=== PATIENT | male | born 2000 | race Caucasian/White ===

== ENCOUNTER 2020-02-29 21:48 | Emergency (ER) | payer SELFPAY ==
[2020-02-29 22:06] VITALS: BP 122/76; PULSE 104; RESP 18; TEMP 36.4; O2SAT 98; BMI 20.2
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
[2020-02-29 23:37] VITALS: PULSE 92; RESP 16; O2SAT 98
== END 2020-02-29 23:38 | disposition home or self-care (01) ==
PROVIDERS: Emergency Provider Physician Assistant; PCP Family Medicine
DX: S60.221A Contusion of right hand, initial encounter (principal); V89.2XXA Person injured in unspecified motor-vehicle accident, traffic, initial encounter
CPT/HCPCS: 12345; 73130; 99281; 99282

== ENCOUNTER 2020-07-05 19:03 | Emergency (ER) | payer SELFPAY ==
[2020-07-05] VITALS (7 sets, daily range): BP systolic 107–125; BP diastolic 66–87; PULSE 77–136; RESP 17–28; TEMP 36.2; O2SAT 92–98; BMI 20.9
--- NOTE | 2020-07-05 19:10 | XR_ITS ---
WS: [id number] XR chest 1V portable [id number] REASON FOR EXAM: sob FINDINGS: Chest is unchanged compared to 11/01/2012. The heart and mediastinum are within normal limits. Calcified granulomatous changes in both hemithoraces. No active pulmonary parenchymal or pleural disease. Bony thorax is intact. XR/XR chest 1V portable [id number] IMPRESSION: No acute chest abnormality.
--- NOTE | 2020-07-05 19:45 | ED_ITS ---
HPI - SOB/Dyspnea General: Chief Complaint: Shortness of Breath/Dyspnea Stated Complaint: SOB Time Seen by Provider: 07/05/20 19:26 Source: patient Mode of arrival: ambulatory Limitations: no limitations History of Present Illness: HPI Narrative: 20-year-old male has a history of asthma states he had increased weakening cough over last 4 to 5 days. Patient is tachypneic and tachycardic here. He states that he has been using his breathing treatments at home with minimal relief. He denies any vomiting or diarrhea. Denies any worsening improving factors. He has had no known sick contacts that he knows of. Associated symptoms: Deny abdominal pain, chest pain, fever(s), nausea or vomiting Review of Systems Const: Denies: fever(s), chills, body aches or change in appetite Eyes: Denies: blurry vision or eye discomfort ENMT: Denies: throat pain or dental pain Card: Denies: chest pain Resp: Reports: dyspnea, non-productive cough and wheezing GI: Denies: abdominal pain, nausea, vomiting or diarrhea : Denies: dysuria Musc: Denies: neck pain or back pain Skin/Breast: Denies: rash Neuro: Denies: headache(s) Psych: Denies: depression Jorge/Lymph: Denies: easy bruising All/Imm: Denies: urticaria Physical Exam Const: COMMON NORMALS: no acute distress, patient oriented x3 and healthy appearing HENMT: COMMON NORMALS: normocephalic and atraumatic HEAD & SCALP: normocephalic and atraumatic Eye: COMMON NORMALS: Equal, round and reactive pupils present and EOMs intact bilaterally PUPIL: Yes Equal, round and reactive pupils present Neck/C-Spine: COMMON NORMALS: full ROM and supple Chest: COMMONS NORMALS: normal inspection of the chest and normal palpation of entire chest wall Resp: COMMON NORMALS: No retractions and No use of accessory muscles EFFORT & INSPECTION: Yes tachypneic AUSCULTATION: wheezes Cardio: COMMON NORMALS: regular rhythm and No murmurs present (Cardio) RATE: tachycardic RHYTHM: regular rhythm GI: COMMON NORMALS: Normal to inspection, nondistended, normoactive bowel sounds present, Soft to palpation, non-tender and no masses PALPATION: Yes Soft to palpation Extremity: COMMON NORMALS: normal to inspection and full ROM Neuro: COMMON NORMALS: patient oriented x3, moves all extremities and no focal motor deficits Psych: COMMON NORMALS: mental status grossly normal, Normal thought process present and cooperative THOUGHT PROCESS: Normal thought process present Skin: COMMON NORMALS: no rashes or lesions noted and no wounds GENERAL SKIN EXAM: no rashes or lesions noted Course Vital Signs: Vital signs: Vital Signs Temperature 97.2 F L 07/05/20 19:12 Pulse Rate 80 07/05/20 20:15 Respiratory Rate 19 H 07/05/20 20:13 Blood Pressure 107/66 07/05/20 19:12 Pulse Oximetry 94 07/05/20 20:13 MDM - SOB/Dyspnea MDM Narrative: Medical decision making narrative: Mingo presents here with dyspnea and wheezing. This is likely bronchitis and asthma exacerbation. His x-ray here shows no pneumothorax or pneumonia. His Covid test was negative. He is much improved here after a breathing treatment. His tachycardia subsided. He has no signs of pulmonary embolism with a negative D-dimer. He is stable for discharge and is to follow-up and return if worsening. Lab Data: Labs: Lab Results 07/05/20 07/05/20 07/05/20 Range/Units 19:47 19:47 19:47 WBC 18.5 H (4.0-10.0) 10^3/ uL RBC 4.95 (4.1-5.3) 10^6/u L Hgb 15.8 (11.7-16.6) g/dL Hct 48.5 (42.0-52.0) % MCV 98.0 H (80-94) fL MCH 31.9 (28.0-34.0) pg MCHC 32.6 (30.0-36.0) g/dL RDW 11.9 L (12.1-15.1) % Plt Count 302 (130-400) 10^3/c mm MPV 10.7 H (7.4-10.4) fL Neut % (Auto) 80.6 % Lymph % (Auto) 6.9 % [place] % (Auto) 9.2 % Eos % (Auto) 2.5 % Baso % (Auto) 0.4 % Neut # (Auto) 14.94 H (1.8-7.7) 10^3/u L Lymph # (Auto) 1.3 (0.8-4.8) 10^3/u L [place] # (Auto) 1.7 H (0.2-0.9) 10^3/u L Eos # (Auto) 0.5 (0.0-0.8) 10^3/u L Baso # (Auto) 0.1 (0.0-0.1) 10^3/u L Nucleated RBC % (a uto) 0 % Nucleated RBCs # 0.0 /100WBC D-Dimer 0.44 (0-0.59) ug/mIFE U Sodium 139 (136-145) mmol/L Potassium 4.3 (3.5-5.1) mmol/L Chloride 99 (98-107) mmol/L Carbon Dioxide 28 (22-29) mmol/L Anion Gap 16.3 (5-19) BUN 8 (6-20) mg/dL Creatinine 0.9 (0.7-1.2) mg/dL GFR Calculation 106.5 (90-130) mL/min Glucose 120 H (65-115) mg/dL Calculated Osmolal ity 288 (285-295) mOsm/k g Calcium 9.8 (8.5-10.5) mg/dL Total Bilirubin 0.4 (0.15-1.2) mg/dL AST 14 (0-40) U/L ALT 11 (0-41) U/L Alkaline Phosphata se 74 (40-130) IU/L Total Protein 8.2 (6.6-8.7) g/dL Albumin 4.5 (3.5-5.2) g/dL Globulin 3.7 (1.3-4.6) g/dL SARS-CoV-2 Ag (Rap id) (Negative) 07/05/20 Range/Units 20:05 WBC (4.0-10.0) 10^3/ uL RBC (4.1-5.3) 10^6/u L Hgb (11.7-16.6) g/dL Hct (42.0-52.0) % MCV (80-94) fL MCH (28.0-34.0) pg MCHC (30.0-36.0) g/dL RDW (12.1-15.1) % Plt Count (130-400) 10^3/c mm MPV (7.4-10.4) fL Neut % (Auto) % Lymph % (Auto) % [place] % (Auto) % Eos % (Auto) % Baso % (Auto) % Neut # (Auto) (1.8-7.7) 10^3/u L Lymph # (Auto) (0.8-4.8) 10^3/u L [place] # (Auto) (0.2-0.9) 10^3/u L Eos # (Auto) (0.0-0.8) 10^3/u L Baso # (Auto) (0.0-0.1) 10^3/u L Nucleated RBC % (a uto) % Nucleated RBCs # /100WBC D-Dimer (0-0.59) ug/mIFE U Sodium (136-145) mmol/L Potassium (3.5-5.1) mmol/L Chloride (98-107) mmol/L Carbon Dioxide (22-29) mmol/L Anion Gap (5-19) BUN (6-20) mg/dL Creatinine (0.7-1.2) mg/dL GFR Calculation (90-130) mL/min Glucose (65-115) mg/dL Calculated Osmolal ity (285-295) mOsm/k g Calcium (8.5-10.5) mg/dL Total Bilirubin (0.15-1.2) mg/dL AST (0-40) U/L ALT (0-41) U/L Alkaline Phosphata se (40-130) IU/L Total Protein (6.6-8.7) g/dL Albumin (3.5-5.2) g/dL Globulin (1.3-4.6) g/dL SARS-CoV-2 Ag (Rap id) Negative (Negative) Imaging Data^: CXR: Attestation: I personally reviewed and interpreted this imaging study as follows: My impression: no acute abnormality Discharge Plan Discharge Patient Disposition: Home Clinical Impression: Bronchitis Asthma with exacerbation Qualifiers: Asthma severity: unspecified severity Asthma persistence: unspecified Qualified Code(s): J45.901 - Unspecified asthma with (acute) exacerbation Condition: Stable Prescriptions: New Keflex 500 mg capsule 500 mg PO Q6H 7 Days Qty: 28 RF: 0 prednisone 50 mg tablet 50 mg PO DAILY Qty: 5 RF: 0 Discharge Orders: Discharge ED (Routine); Ordered 07/05/20 Ordered By: Yesi Saba Referrals: Collin Jimenes Jr, MD [Primary Care Provider] - Discharge Diet: Advance as tolerated Discharge Activity: Resume usual activity Patient Instructions: Asthma (ED) Coding Level of Care Code ED Obgyn Specialist for Chg Fwd Exam Comprehensive
[2020-07-05] MEDS: sodium chloride 0.9% 1,000 ML 999 ML IV (19:59)
[2020-07-05] MEDS: LORazepam 2 mg/mL INJ 1 mL 1 MG IVP (19:59)
[2020-07-05] MEDS: albuterol 8 gm MDI 2 PUFF INHALATION (20:15)
[2020-07-05 20:21] LABS: D Dimer 0.44 ug/mIFEU (0-0.59)
[2020-07-05 20:38] LABS: Basophils # 0.1 10^3/uL (0.0-0.1); Basophils % 0.4 %; Eosinophils # 0.5 10^3/uL (0.0-0.8); Eosinophils % 2.5 %; Hematocrit 48.5 % (42.0-52.0); Hemoglobin 15.8 g/dL (11.7-16.6); Lymphocytes # 1.3 10^3/uL (0.8-4.8); Lymphocytes % 6.9 %; Mean Corpuscular HGB Conc 32.6 g/dL (30.0-36.0); Mean Corpuscular Hemoglobin 31.9 pg (28.0-34.0); Mean Platelet Volume 10.7 fL (7.4-10.4); Monocytes # 1.7 10^3/uL (0.2-0.9); Monocytes % 9.2 %; Neutrophils # 14.94 10^3/uL (1.8-7.7); Neutrophils % 80.6 %; Nucleated Red Blood Cells % 0 %; Platelet Count 302 10^3/cmm (130-400); Red Blood Count 4.95 10^6/uL (4.1-5.3); Red Cell Distribution Width 11.9 % (12.1-15.1); White Blood Count 18.5 10^3/uL (4.0-10.0)
[2020-07-05 20:45] LABS: Alanine Aminotransferase 11 U/L (0-41); Albumin Level 4.5 g/dL (3.5-5.2); Alkaline Phosphatase 74 IU/L (40-130); Anion Gap 16.3 (5-19); Aspartate Amino Transferase 14 U/L (0-40); Blood Urea Nitrogen 8 mg/dL (6-20); Calcium 9.8 mg/dL (8.5-10.5); Carbon Dioxide 28 mmol/L (22-29); Chloride 99 mmol/L (98-107); Globulin 3.7 g/dL (1.3-4.6); Glomerular Filtration Rate 106.5 mL/min (90-130); Glucose 120 mg/dL (65-115); Osmolality Calculated 288 mOsm/kg (285-295); Potassium 4.3 mmol/L (3.5-5.1); Sodium 139 mmol/L (136-145); Total Bilirubin 0.4 mg/dL (0.15-1.2); Total Protein 8.2 g/dL (6.6-8.7)
[2020-07-05 20:49] LABS: SARS Covid-2 Antigen Negative (Negative)
[2020-07-05] MEDS: ipratropium-albuterol 3 mL Neb INHALATION (21:30)
== END 2020-07-05 21:58 | disposition home or self-care (01) ==
PROVIDERS: Emergency Provider Emergency Medicine; PCP Family Medicine
DX: J40 Bronchitis, not specified as acute or chronic (principal); J45.901 Unspecified asthma with (acute) exacerbation
CPT/HCPCS: 12345; 71045; 80053; 85025; 85378; 87426; 94640; 96361; 96374; 99282; 99284; J2060; J3535; J7030

== ENCOUNTER 2024-09-16 02:12 | Emergency (ER) | payer OTHER, SELFPAY ==
--- NOTE | 2024-09-16 02:18 | XRR_ITS ---
PROCEDURE INFORMATION: Exam: XR Chest Exam date and time: 09/16/2024 2:27 AM Age: 24 years old Clinical indication: Shortness of breath TECHNIQUE: Imaging protocol: Radiologic exam of the chest. Views: 1 view. COMPARISON: CR XR chest 1V portable [id number] 07/05/2020 8:21 PM FINDINGS: Lungs: Unremarkable. No consolidation. Pleural spaces: Unremarkable. No pleural effusion. No pneumothorax. Heart/Mediastinum: Unremarkable. No cardiomegaly. Bones/joints: Unremarkable. XR/XR chest 1V portable [id number] IMPRESSION: No acute findings.
[2024-09-16 02:20] VITALS: BP 90/67; PULSE 72; RESP 10; TEMP 34.8; O2SAT 94; BMI 16.0
[2024-09-16 02:24] LABS: Basophils # 0.1 10^3/uL (0.0-0.1); Basophils % 0.8 %; Eosinophils # 0.5 10^3/uL (0.0-0.8); Eosinophils % 6.1 %; Hematocrit 42.5 % (37-53); Lymphocytes # 2.5 10^3/uL (0.8-4.8); Mean Corpuscular HGB Conc 32.5 g/dL (30-55); Mean Corpuscular Hemoglobin 29.9 pg (27-33); Mean Corpuscular Volume 92.2 fl (82-101); Mean Platelet Volume 10.4 fL (7.4-10.4); Monocytes % 13.1 %; Neutrophils # 3.41 10^3/uL (1.8-7.7); Neutrophils % 45.9 %; Nucleated Red Blood Cells % 0 %; Platelet Count 289 10^3/cmm (157-399); Red Blood Count 4.61 10^6/uL (3.85-5.65); Red Cell Distribution Width 12.2 % (12.1-15.1); White Blood Count 7.42 10^3/uL (3.29-11.43)
--- NOTE | 2024-09-16 02:27 | ED_ITS ---
HPI - Altered Mental Status 2 General: Chief Complaint: Altered Mental Status Stated Complaint: ams Time Seen by Provider: 09/16/24 02:17 History of Present Illness: 24-year-old man with a history of asthma who presents emergency room after what was an apparent accidental Dilaudid overdose. Apparently he has been wheezing and his girlfriend went to find a inhaler and while she is gone apparently he injected a milligram of Dilaudid and when she got there he was unresponsive. She attempted some CPR. By the time EMS arrived he was awake. He denies any suicidal ideation. He had some wheeze on transfer and received breathing treatment and lungs sound much better now. No oxygen requirements. Related Data Previous Rx's ?Medication ?Instructions ?Recorded cephalexin 500 mg capsule 500 mg PO TID 7 days #21 cap s 08/17/21 albuterol sulfate 90 mcg/actuation 2 inh inhalation Q4 H PRN shortness 09/16/24 aerosol inhaler of breath or wheezing #6.7 g leroy azithromycin 250 mg tablet See Rx Instructions PO .COM PLEX #6 09/16/24 (Zithromax Z-Tu) tabs dexamethasone 6 mg tablet 6 mg PO DAILY 5 days #5 tabs 09/16/24 Allergies Allergy/AdvReac Type Severity Reaction Status Date / Time No Known Allergies Allergy Verified 09/16/24 02:25 Review of Systems 2 Narrative: Constitutional symptoms: Negative except as documented in HPI. Skin symptoms: Negative except as documented in HPI. Eye symptoms: Negative except as documented in HPI. ENMT symptoms: Negative except as documented in HPI. Respiratory symptoms: Negative except as documented in HPI. Cardiovascular symptoms: Negative except as documented in HPI. Gastrointestinal symptoms: Negative except as documented in HPI. Genitourinary symptoms: Negative except as documented in HPI. Musculoskeletal symptoms: Negative except as documented in HPI. Neurologic symptoms: Negative except as documented in HPI. Psychiatric symptoms: Negative except as documented in HPI. Endocrine symptoms: Negative except as documented in HPI. PFSH ED 2 PFSH: Social History Smoking and tobacco/nicotine status: current every day tobacco/nicotine user Physical Exam 2 Narrative: General: Alert, no acute distress. Skin: Warm, dry. Head: Normocephalic, atraumatic. Neck: Supple, trachea midline. Eye: Extraocular movements are intact. Ears, nose, mouth and throat: Oral mucosa moist. Cardiovascular: Regular rate and rhythm, Normal peripheral perfusion. Respiratory: some expiratory wheeze, mild increased wob, breath sounds are equal, Symmetrical chest wall expansion. Gastrointestinal: Soft, Nontender, Non distended, Normal bowel sounds. Musculoskeletal: Normal ROM, no deformity. Neurological: Alert and oriented to person, place, time, and situation, No focal neurological deficit observed. Psychiatric: Cooperative, appropriate mood & affect. Course 2 Vital Signs: Vital signs: Vital Signs Temperature 94.7 F L 09/16/24 02:20 Pulse Rate 89 09/16/24 02:43 Respiratory Rate 14 09/16/24 02:43 Blood Pressure 134/95 09/16/24 02:43 Pulse Oximetry 93 09/16/24 02:43 Oxygen Delivery Me thod Room Air 09/16/24 02:43 MDM - Altered Mental Status Medical Decision Making Chest x-ray: No acute process. No infiltrate. No pneumothorax. This was reviewed and interpreted by myself the emergency room physician. I also reviewed the radiology report. Assessment and plan: Unintentional opiate overdose Asthma exacerbation ? Narcan, Decadron in the emergency room. Breathing treatment given in the ambulance - Discharged home - Discussed plan with patient. Answered any questions. - Evaluation and treatment of this problem were appropriate in the emergency setting. Lab Data 09/16/24 02:00 09/16/24 02:00 Laboratory Results WBC 7.42 10^3/uL (3.29-11.43) 09/16/24 02:00 RBC 4.61 10^6/uL (3.85-5.65) 09/16/24 02:00 Hgb 13.80 g/dL (11.27-16.99) 09/16/24 02:00 Hct 42.5 % (37-53) 09/16/24 02:00 MCV 92.2 fl (82-101) 09/16/24 02:00 MCH 29.9 pg (27-33) 09/16/24 02:00 MCHC 32.5 g/dL (30-55) 09/16/24 02:00 RDW 12.2 % (12.1-15.1) 09/16/24 02:00 Plt Count 289 10^3/cmm (157-399) 09/16/24 02:00 MPV 10.4 fL (7.4-10.4) 09/16/24 02:00 Neut % (Auto) 45.9 % 09/16/24 02:00 Lymph % (Auto) 34.0 % 09/16/24 02:00 [place] % (Auto) 13.1 % 09/16/24 02:00 Eos % (Auto) 6.1 % 09/16/24 02:00 Baso % (Auto) 0.8 % 09/16/24 02:00 Neut # (Auto) 3.41 10^3/uL (1.8-7.7) 09/16/24 02:00 Lymph # (Auto) 2.5 10^3/uL (0.8-4.8) 09/16/24 02:00 [place] # (Auto) 1.0 10^3/uL (0.2-0.9) H 09/16/24 02:00 Eos # (Auto) 0.5 10^3/uL (0.0-0.8) 09/16/24 02:00 Baso # (Auto) 0.1 10^3/uL (0.0-0.1) 09/16/24 02:00 Nucleated RBC % (auto) 0 % 09/16/24 02:00 Nucleated RBCs # 0.0 /100WBC 09/16/24 02:00 Sodium 143 mmol/L (136-145) 09/16/24 02:00 Potassium 4.4 mmol/L (3.5-5.1) 09/16/24 02:00 Chloride 105 mmol/L (98-107) 09/16/24 02:00 Carbon Dioxide 28 mmol/L (22-29) 09/16/24 02:00 Anion Gap 14.4 (5-19) 09/16/24 02:00 BUN 18 mg/dL (6-20) 09/16/24 02:00 Creatinine 1.2 mg/dL (0.7-1.2) 09/16/24 02:00 GFR Calculation 73.8 mL/min (90-130) L 09/16/24 02:00 Glucose 111 mg/dL (65-115) 09/16/24 02:00 Calculated Osmolality 299 mOsm/kg (285-295) H 09/16/24 02:00 Calcium 9.1 mg/dL (8.5-10.5) 09/16/24 02:00 Total Bilirubin 0.5 mg/dL (0.15-1.2) 09/16/24 02:00 AST 30 U/L (0-40) 09/16/24 02:00 ALT 19 U/L (0-41) 09/16/24 02:00 Alkaline Phosphatase 74 U/L (40-130) 09/16/24 02:00 Total Protein 7.4 g/dL (6.6-8.7) 09/16/24 02:00 Albumin 4.6 g/dL (3.5-5.2) 09/16/24 02:00 Globulin 2.8 g/dL (1.3-4.6) 09/16/24 02:00 All radiology interpretation(s) finalized by discharge Discharge Plan Discharge Patient Disposition: Home Clinical Impression: Asthma exacerbation, Opiate overdose Condition: Stable Prescriptions: New azithromycin [Zithromax Z-Tu] 250 mg tablet See Rx Instructions .ROUTE .COMPLEX Qty: 6 0RF Rx Instructions: For 250 mg dose pack: take 500 mg today (day 1), then 250 mg for 4 days (days 2-5) dexamethasone 6 mg tablet 6 mg PO DAILY 5 Days Qty: 5 0RF albuterol sulfate 90 mcg/actuation HFA aerosol inhaler 2 inh inhalation Q4H PRN (Reason: shortness of breath or wheezing) Qty: 6.7 0RF Rx Instructions: Please provide patient with a spacer No Action cephalexin 500 mg capsule 500 mg PO TID 7 Days Qty: 21 0RF Discharge Orders: Discharge ED (Routine); Ordered 09/16/24 Ordered By: Jennifer Dumont Referrals: Collin Jimenes Jr, MD [Staff Physician] - Discharge Diet: Usual diet Discharge Activity: Increase activity as tolerated Patient Instructions: Altered Mental Status (ED), Opioid Safety, Pain Management Activity Restrictions/Additional Instructions: Please seek help for opiate use. This is risky and could result in or permanent harm to your being. Thank you for choosing [facility] for your healthcare needs today. Please realize this is an emergency room and that we are providing you with a medical screening exam and this may not be complete and all inclusive of all the testing and or work up that you may need to determine your ailment or severity of your illness. You have been screened and evaluated and felt safe for discharge. Health conditions do change or evolve sometimes and as such it is important that you follow up with your Primary Doctor to be re checked, 3-5 days is a general good time frame for follow up. You are always welcome to return to the ED for re assessment if your symptoms are worsening or you have new concerns Print Language: [place] Coding Level of Care Code ED Emotional Disabilities Teacher for Claudine Graves
--- NOTE | 2024-09-16 02:35 | ECG_ITS ---
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
[2024-09-16] MEDS: dexamethasone 10 mg/mL INJ IVP (02:42)
[2024-09-16] MEDS: naloxone 0.4 mg/ml SDV IVP (02:42)
[2024-09-16 02:43] VITALS: BP 134/95; PULSE 89; RESP 14; O2SAT 93
[2024-09-16 02:50] LABS: Alanine Aminotransferase 19 U/L (0-41); Albumin Level 4.6 g/dL (3.5-5.2); Alkaline Phosphatase 74 U/L (40-130); Anion Gap 14.4 (5-19); Aspartate Amino Transferase 30 U/L (0-40); Blood Urea Nitrogen 18 mg/dL (6-20); Calcium 9.1 mg/dL (8.5-10.5); Carbon Dioxide 28 mmol/L (22-29); Chloride 105 mmol/L (98-107); Creatinine Clr Calc Pharmacy 69.4299; Globulin 2.8 g/dL (1.3-4.6); Glomerular Filtration Rate 73.8 mL/min (90-130); Glucose 111 mg/dL (65-115); Osmolality Calculated 299 mOsm/kg (285-295); Potassium 4.4 mmol/L (3.5-5.1); Sodium 143 mmol/L (136-145); Total Bilirubin 0.5 mg/dL (0.15-1.2); Total Protein 7.4 g/dL (6.6-8.7)
[2024-09-16 03:18] VITALS: BP 92/69; PULSE 73; RESP 14; O2SAT 96
[2024-09-16 03:20] LABS: Influenza A NEGATIVE (Negative); Influenza B NEGATIVE (Negative); Respiratory Syncytial Virus Ce NEGATIVE (Negative); SARS-CoV-2 PCR NEGATIVE (Negative)
== END 2024-09-16 03:21 | disposition home or self-care (01) ==
PROVIDERS: Emergency Provider Emergency Medicine
DX: T40.2X1A Poisoning by other opioids, accidental (unintentional), initial encounter (principal); J45.901 Unspecified asthma with (acute) exacerbation; X58.XXXA Exposure to other specified factors, initial encounter; Z72.0 Tobacco use
CPT/HCPCS: 36415; 71045; 80053; 85025; 87637; 93005; 96374; 96375; 99285; J1100; J2310